=== PATIENT | male | born 1955 | race Caucasian/White ===

== ENCOUNTER 2021-04-20 10:53 | Emergency (ER) | payer OTHER ==
[~2021-04-20] VITALS: Ht 188 cm; Wt 115.0 kg
--- NOTE | 2021-04-20 11:29 | PHYS DOC ---
General Adult HPI: HPI: Patient is a 65-year-old male who presents to the emergency department today for an 18-day history of shortness of breath, nonproductive cough, loss of taste and smell, nausea, vomiting. Patient reports multiple sick exposures. He denies any abdominal pain, weight gain, leg swelling, history of DVT/PE, fever or chest pain. He does not wear oxygen at home. Patient only medical history is anxiety and he takes Lexapro. (DACIA LEAL APRN) Review of Systems: Review of Systems: Constitutional: negative unless reported in HPI Eyes: negative unless reported in HPI HENT: negative unless reported in HPI Respiratory: negative unless reported in HPI Cardiovascular: negative unless reported in HPI GI: negative unless reported in HPI : negative unless reported in HPI Musculoskeletal: negative unless reported in HPI Integument: negative unless reported in HPI Neurologic: negative unless reported in HPI Endocrine: negative unless reported in HPI Lymphatic: negative unless reported in HPI Psychiatric: negative unless reported in HPI (DACIA LEAL APRN) Current Medications: Current Meds: Current Medications Medications (Trade) Dose Ordered Sig/Mike Start Time Stop Time Status Last Admin Dose Admin Aspirin (Aspirin Chewable) 324 mg 1X ONCE 04/20/21 11:30 04/20/21 11:31 UNV Dexamethasone Sodium Phosphate (Decadron) 10 mg 1X ONCE 04/20/21 11:30 04/20/21 11:31 UNV (DACIA LEAL APRN) Physical Exam: PE: Constitutional: Well developed, well nourished, no acute distress, non-toxic appearance. [] HENT: Normocephalic, atraumatic, bilateral external ears normal, oropharynx moist, no oral exudates, nose normal. [] Eyes: PERRL, EOMI, conjunctiva normal, no discharge. [] Neck: Normal range of motion, no stridor Cardiovascular:Heart rate regular rhythm, no murmur [] Lungs & Thorax: coase lower lobes, tachypnea, labored breathing, accessory muscle use, cyanosis to forehead Abdomen: Bowel sounds normal, soft, no tenderness, no masses, no pulsatile masses. [] Skin: Warm, dry, no erythema, no rash. [] Back: Normal rom Extremities: No tenderness, no cyanosis, no clubbing, ROM intact, trace edema noted to ble Neurologic: Alert and oriented X 3, normal motor function, normal sensory function, no focal deficits noted. [] Psychologic: Affect normal, judgement normal, mood normal. [] (DACIA LEAL APRN) Current Patient Data: Labs: Laboratory Tests Test 04/20/21 11:25 04/20/21 11:28 04/20/21 11:40 White Blood Count 22.6 x10^3/uL Red Blood Count 5.06 x10^6/uL Hemoglobin 15.6 g/dL Hematocrit 45.6 % Mean Corpuscular Volume 90 fL Mean Corpuscular Hemoglobin 31 pg Mean Corpuscular Hemoglobin Concent 34 g/dL Red Cell Distribution Width 13.5 % Platelet Count 562 x10^3/uL Neutrophils (%) (Auto) 89 % Lymphocytes (%) (Auto) 4 % Monocytes (%) (Auto) 8 % Eosinophils (%) (Auto) 0 % Basophils (%) (Auto) 0 % Neutrophils # (Auto) 19.9 x10^3uL Lymphocytes # (Auto) 0.8 x10^3/uL Monocytes # (Auto) 1.8 x10^3/uL Eosinophils # (Auto) 0.0 x10^3/uL Basophils # (Auto) 0.0 x10^3/uL Segmented Neutrophils % 83 % Band Neutrophils % 5 % Lymphocytes % 5 % Monocytes % 7 % Platelet Estimate Increased Sodium Level 117 mmol/L Potassium Level 4.5 mmol/L Chloride Level 80 mmol/L Carbon Dioxide Level 25 mmol/L Anion Gap 12 Blood Urea Nitrogen 14 mg/dL Creatinine 1.1 mg/dL Estimated GFR (Cockcroft-Gault) 67.6 BUN/Creatinine Ratio 13 Glucose Level 91 mg/dL Lactic Acid Level 3.5 mmol/L Calcium Level 7.7 mg/dL Total Bilirubin 1.1 mg/dL Aspartate Amino Transf (AST/SGOT) 47 U/L Alanine Aminotransferase (ALT/SGPT) 29 U/L Alkaline Phosphatase 149 U/L Troponin I High Sensitivity 48 ng/L IK-Lxa-R-Type Natriuretic Peptide 717 pg/mL Total Protein 5.7 g/dL Albumin 2.0 g/dL Albumin/Globulin Ratio 0.5 Influenza Type A (Rapid) Negative Influenza Type B (Rapid) Negative SARS-CoV-2 Antigen (Rapid) Negative Bedside Venous pH 7.38 Bedside Venous pCO2 46 mmHg Bedside Venous pO2 21 mmHg Venous Blood HCO3 27 mmol/L POC Venous O2 Saturation (Sulaiman) 33 % Bedside FiO2 100 Current Medications Medications (Trade) Dose Ordered Sig/Mike Route PRN Reason Start Time Stop Time Status Last Admin Dose Admin Aspirin (Aspirin Chewable) 324 mg 1X ONCE PO 04/20/21 11:30 04/20/21 11:42 DC 04/20/21 11:49 Dexamethasone Sodium Phosphate (Decadron) 10 mg 1X ONCE IVP 04/20/21 11:30 04/20/21 11:42 DC 04/20/21 11:50 Iohexol (Omnipaque 350 Mg/ml) 100 ml 1X ONCE IV 04/20/21 11:45 04/20/21 11:46 DC 04/20/21 12:06 (DACIA LEAL APRN) EKG: EKG: EKG performed by ER staff at 1149 shows sinus rhythm. Rate is 88, QTc is 459, n o STEMI read by Dr. Phillips. [] (DACIA LEAL APRN) Radiology/Procedures: Radiology/Procedures: []PROCEDURE: CT ANGIOGRAPHY CHEST CTA CHEST dated 04/20/2021 11:51 AM Indication:Reason: soa, hypoxia / Spl. Instructions: omni 350 100ml, per , do w/o labs / History: Comparison: No comparison is available. Technique: CT images were performed using infusion of 100 mL Omnipaque 350. MIP reconstructions were obtained. One or more of the following individualized dose reduction techniques were utilized for this examination: 1. Automated exposure control 2. Adjustment of the mA and/or kV according to patient size 3. Use of iterative reconstruction technique Findings: There is probably some underlying emphysema and also possibly fibrosis. Ground glass infiltrate is present throughout the left lung without consolidation. There is probably mild air infiltrate on the right. There is some right pleural density that has attenuation of fluid, although appears loculated laterally. Some fluid is also seen inferiorly in the chest on the right. There is a trace of pleural fluid on the left as well. Respiratory motion artifact slightly limits evaluation. The central airways show no obstruction. No enlarged axillary lymph nodes are seen. There are mildly prominent mediastinal and right hilar lymph nodes. These are presumably reactive. Evaluation of the pulmonary arterial tree is slightly limited by the respiratory motion. No abnormal filling defect is identified to the subsegmental branch level. Images through the upper abdomen show no apparent acute abnormality. IMPRESSION: No evidence of pulmonary embolism. Evaluation is slightly limited by respiratory motion. There is probably some underlying lung disease, including possibly both emphysema and some fibrosis. Superimposed on this is extensive ground glass infiltrate on the left and milder right-sided infiltrate. There is also some pleural fluid on the right that is partly loculated. Electronically signed by: David Daniel Jr., MD (04/20/2021 12:25 PM) [facility] DICTATED AND SIGNED BY: DAVID DANIEL Jr, MD DATE: 04/20/211218 CC: MARLEY RHODES MD; DACIA LEAL APRN ~MTH0 0 (DACIA LEAL APRN) Heart Score: C/O Chest Pain: No Risk Factors: Risk Factors: DM, Current or recent (<one month) smoker, HTN, HLP, family history of CAD, obesity. Risk Scores: Score 0 - 3: 2.5% MACE over next 6 weeks - Discharge Home Score 4 - 6: 20.3% MACE over next 6 weeks - Admit for Clinical Observation Score 7 - 10: 72.7% MACE over next 6 weeks - Early Invasive Strategies (DACIA LEAL APRN) Course & Med Decision Making: Course & Med Decision Making Pertinent Labs and Imaging studies reviewed. (See chart for details) Patient presents to the ER for soa, cough, loss of taste/smell, nausea/vomiting that started 18 days ago. Patient was noted to be labored in the emergency department and his O2 saturation upon ER arrival is 61% on room air. Patient was titrated up on 10 L via nonrebreather and his O2 sat following was 93 to 94%. Patient does not wear oxygen at home. He has no medical history other than anxiety. He denies any history of blood clots and denies any leg swelling. Work-up in the ER consisted of blood work, ABG, covid testing/flu testing, urinalysis, EKG. Due to patient's hypoxia and COVID symptoms, CT angio was pe rformed to rule out a pulmonary embolism. Patient was treated with IV steroids. Patient notified nursing staff that he wants to leave AGAINST MEDICAL ADVICE. I went into patient's room and discussed the severity of his symptoms. We discussed the benefits of staying in the emergency department and admission and the risks associated with leaving AGAINST MEDICAL ADVICE including worsening of condition and . Patient is alert and oriented x4 and capable of making his own decisions. Patient states that he cannot stay in this emergency room because he is too claustrophobic. I told patient that if he left AGAINST MEDICAL ADVICE he could . Patient states "no I will not". "I have had this for 18 days already". I told patient that he is requiring oxygen through a nonrebreather and his oxygen saturations when he came to the emergency department were critically low. Patient states "I will just follow-up with my doctor". ER nurse went into patient's room and reiterated the importance of staying in the hospital for IV antibiotics, oxygen therapy. Patient is reporting that he does not want to be in the ER anymore, nursing staff re iterated the risks associated with leaving AGAINST MEDICAL ADVICE including . Patient acknowledges all risks associated with leaving AGAINST MEDICAL ADVICE. AMA papers signed. We contacted patient's significant other and informed her of patient's wishes and she is currently in route to the emergency department. Patient will be sent home with prescriptions for steroid, antibiotics and an albuterol inhaler. Patient was given a dose of Rocephin prior to ER departure. (DACIA LEAL SAS ETL DEVELOPER) Course & Med Decision Making Did not see or evaluate patient. Did not discuss patient with AMBULATORY CARE. Agree with AMBULATORY CARE's work-up and disposition per note. (URSULA PHILLIPS MD) Dragon Disclaimer: Dragon Disclaimer: This electronic medical record was generated, in whole or in part, using a voice recognition dictation system. (DACIA LEAL SAS ETL DEVELOPER) Departure Departure: Impression: Primary Impression: Pneumonia Qualified Codes: J18.9 - Pneumonia, unspecified organism Disposition: LEFT AGAINST MEDICAL ADVICE Condition: CRITICAL Referrals: MARLEY RHODES MD (PCP) Patient Instructions: Pneumonia, Adult Additional Instructions: You were seen in the emergency department today for shortness of breath. I urged you to be admitted to the hospital for oxygen therapy and IV antibiotics, you have critically low sodium and you are experiencing multiple organ failure. You declined hospital admission and chose to leave AGAINST MEDICAL ADVICE. Leaving AGAINST MEDICAL ADVICE can lead to worsening of your condition and . Scripts Dexamethasone (Decadron) 4 Mg Tablet 10 MG PO DAILY for pneumonia for 5 Days, #13 TAB 0 Refills Prov: DACIA LEAL APRN 04/20/21 Amoxicillin/Potassium Clav (AUGMENTIN 875-125 TABLET) 1 Each Tablet 1 TAB PO BID for pneumonia for 5 Days, #10 TAB 0 Refills Prov: DACIA LEAL APRN 04/20/21 Azithromycin (AZITHROMYCIN TABLET) 250 Mg Tablet 1 PKG PO UD for pneumonia for 5 Days, #6 TAB 0 Refills 2 the first day followed by 1 for days 2-5 Prov: DACIA LEAL APRN 04/20/21 Albuterol Sulfate (PROAIR HFA INHALER) 8.5 Gm Hfa.aer.ad 2 PUFF IH PRN Q4-6HRS PRN for wheezing for 21 Days, #1 INHALER 0 Refills as needed for wheezing Prov: DACIA LEAL APRN 04/20/21 DACIA LEAL APRN Apr 20, 2021 11:29 URSULA PHILLIPS MD Apr 20, 2021 15:03
[2021-04-20] MEDS ORDERED: ASPIRIN CHEWABLE 81 MG TABLET. PO ONE (11:30)
[2021-04-20] MEDS ORDERED: DEXAMETHASONE SOD PHOS 10 MG/ML VIAL. IVP ONE (11:30)
[2021-04-20] MEDS ORDERED: IOHEXOL 350 MG/ML 100 ML VIAL. IV ONE (11:45)
[2021-04-20 12:10] LABS: BASO % 0 % (0-3); EOS % 0 % (0-3); HEMATOCRIT 45.6 % (39.0-53.0); HEMOGLOBIN 15.6 g/dL (13.0-17.5); LYMPH # 0.8 x10^3/uL (1.0-4.8); LYMPH % 4 % (24-48); MEAN CORPUSCULAR HEMOGLOBIN 31 pg (25-35); MEAN CORPUSCULAR HGB CONC 34 g/dL (31-37); MEAN CORPUSCULAR VOLUME 90 fL (79-100); MONO # 1.8 x10^3/uL (0.0-1.1); MONO % 8 % (0-9); NEUT # 19.9 x10^3uL (1.8-7.7); NEUT % 89 % (31-73); PLATELET COUNT 562 x10^3/uL (140-400); RED BLOOD COUNT 5.06 x10^6/uL (4.30-5.70); RED CELL DISTRIBUTION WIDTH 13.5 % (11.5-14.5); WHITE BLOOD COUNT 22.6 x10^3/uL (4.0-11.0)
[2021-04-20 12:24] LABS: ALBUMIN/GLOBULIN RATIO 0.5 (1.0-1.7); CALCIUM 7.7 mg/dL (8.5-10.1); CREATININE 1.1 mg/dL (0.7-1.3); GFR 67.6; POTASSIUM 4.5 mmol/L (3.5-5.1); TOTAL BILIRUBIN 1.1 mg/dL (0.2-1.0); TOTAL PROTEIN 5.7 g/dL (6.4-8.2)
--- NOTE | 2021-04-20 12:27 | RAD ---
CTA CHEST dated 04/20/2021 11:51 AM Indication:Reason: soa, hypoxia / Spl. Instructions: omni 350 100ml, per do Alex w/o labs / His tory: Comparison: No comparison is available. Technique: CT images were performed using infusion of 100 mL Omnipaque 350. MIP reconstructions were obtained. One or more of the following individualized dose reduction techniques were utilized for this examinat ion: 1. Automated exposure control 2. Adjustment of the mA and/or kV according to patient size 3. Use of iterative reconstruction technique Findings: There is probably some underlying emphysema and also possibly fibrosis. Ground glass infiltrate is pr esent throughout the left lung without consolidation. There is probably mild air infiltrate on the ri ght. There is some right pleural density that has attenuation of fluid, although appears loculated la terally. Some fluid is also seen inferiorly in the chest on the right. There is a trace of pleural fl uid on the left as well. Respiratory motion artifact slightly limits evaluation. The central airways show no obstruction. No enlarged axillary lymph nodes are seen. There are mildly prominent mediastina l and right hilar lymph nodes. These are presumably reactive. Evaluation of the pulmonary arterial tree is slightly limited by the respiratory motion. No abnormal filling defect is identified to the subsegmental branch level. Images through the upper abdomen show no apparent acute abnormality. IMPRESSION: No evidence of pulmonary embolism. Evaluation is slightly limited by respiratory motion. There is probably some underlying lung disease, including possibly both emphysema and some fibrosis. Superimposed on this is extensive ground glass infiltrate on the left and milder right-sided infiltra te. There is also some pleural fluid on the right that is partly loculated. Electronically signed by: Keenan Daniel Jr., MD (04/20/2021 12:25 PM) [facility]OSPITALOsvaldo
--- NOTE | 2021-04-20 12:28 | EKG ---
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
[2021-04-20 12:30] LABS: INFLUENZA A PATIENT NEGATIVE (NEGATIVE); INFLUENZA B PATIENT NEGATIVE (NEGATIVE)
[2021-04-20 12:39] VITALS: BP 139/70
[2021-04-20 12:46] LABS: % BANDS 5 % (0-9); % LYMPHS 5 % (24-48); % MONOS 7 % (0-10); % SEGS 83 % (35-66); PLT ESTIMATE INCREASED (ADEQUATE)
[2021-04-20] MEDS ORDERED: ALBU2.5V8 IH (12:52)
[2021-04-20] MEDS ORDERED: AMOX1TAB61 PO (12:52)
[2021-04-20] MEDS ORDERED: DEXA4TAB63 PO (12:52)
[2021-04-20] MEDS ORDERED: AZIT250T6 PO (12:52)
[2021-04-20] MEDS ORDERED: cefTRIAXone SODIUM 1 GM VIAL ONE (12:53)
[2021-04-20] MEDS ORDERED: cefTRIAXone IM 1 GM VIAL IM ONE (13:00)
== END 2021-04-20 13:00 | disposition left against medical advice (07) ==
LOC: ER 10:53
DX: U07.1 COVID-19 (principal); J18.9 Pneumonia, unspecified organism
CPT/HCPCS: 36415; 71275; 80053; 82803; 83605; 83880; 84484; 85007; 85025; 87040; 87428; 93005; 96372; 96374; 99285; C9803; J0696; J1100; Q9967; U0003

== ENCOUNTER 2021-04-20 19:02 | Emergency (ER) | payer OTHER ==
[~2021-04-20] VITALS: Ht 188 cm; Wt 115.0 kg
[~2021-04-20 19:02] MED LIST: ALBU2.5V8 IH; AMOX1TAB61 PO; AZIT250T6 PO; DEXA4TAB63 PO
[2021-04-20] MEDS ORDERED: PIPERACILLIN/TAZOBACTAM 4.5 GM in IV NORMAL SALINE 50ML 50 ML IV ONE (19:15)
[2021-04-20] MEDS ORDERED: IV NORMAL SALINE 50ML 50 ML ONE ×3 (19:37→21:46)
[2021-04-20] MEDS ORDERED: PIPERACILLIN/TAZOBACTAM 4.5 GM VIAL IV ONE ×2 (19:37→19:44)
--- NOTE | 2021-04-20 19:47 | PHYS DOC ---
Past History Past Medical History: Pneumonia (DOUGLAS JETT MD) Past Surgical History: No Surgical History (DACIA LEAL APRN) Alcohol Use: Heavy (DACIA LEAL APRN) General Adult EDM: Chief Complaint: SHORTNESS OF BREATH HPI: HPI: Patient is a 65-year-old male who presents to the emergency department for shortness of breath. I saw this patient earlier this afternoon for complaints of shortness of breath, nonproductive cough, loss of taste and smell with nausea and vomiting. At that time patient was placed on a nonrebreather due to hypoxia. He had bilateral infiltrates with hyponatremia, lactic acidosis, new CHF with an elevated BNP and leukocytosis indicating sepsis. Patient chose to sign out AGAINST MEDICAL ADVICE at that time. Patient returns to the emergency department today for exacerbation of his symptoms. Patient denies any current chest pain. On room air patient is 61%. Patient is placed on a nonrebreather and is 92 to 93%. (DACIA LEAL APRN) Review of Systems: Review of Systems: Constitutional: negative unless reported in HPI Eyes: negative unless reported in HPI HENT: negative unless reported in HPI Respiratory: negative unless reported in HPI Cardiovascular: negative unless reported in HPI GI: negative unless reported in HPI : negative unless reported in HPI Musculoskeletal: negative unless reported in HPI Integument: negative unless reported in HPI Neurologic: negative unless reported in HPI Endocrine: negative unless reported in HPI Lymphatic: negative unless reported in HPI Psychiatric: negative unless reported in HPI (DACIA LEAL APRN) Current Medications: Current Meds: Current Medications Medications (Trade) Dose Ordered Sig/Mike Start Time Stop Time Status Last Admin Dose Admin Piperacillin Sod/ Tazobactam Sod 4.5 gm/Sodium Chloride 50 ml @ 100 mls/hr 1X ONCE 04/20/21 19:15 04/20/21 19:44 (DACIA LEAL APRN) Allergies: Allergies: Allergies Coded Allergies Type Severity Reaction Last Updated Verified No Known Drug Allergies 04/20/21 No (DACIA LEAL APRN) Physical Exam: PE: Constitutional: Well developed, well nourished, no acute distress, non-toxic appearance. [] HENT: Normocephalic, atraumatic, cyanosis to the face noted, bilateral external ears normal, oropharynx moist, no oral exudates, nose normal. [] Eyes: PERRL, EOMI, conjunctiva normal, no discharge. [] Neck: Normal range of motion, no tenderness, supple, no stridor. [] Cardiovascular:Heart rate regular rhythm, no murmur [] Lungs & Thorax: Coarse lower lobes, tachypnea, labored, accessory muscle use Abdomen: Bowel sounds normal, soft, no tenderness, obese, no masses, no pulsatile masses. [] Skin: Warm, dry, no erythema, no rash. [] Back: Normal range of motion Extremities: No tenderness, no cyanosis, no clubbing, ROM intact, trace edema to bilateral lower extremities Neurologic: Alert and oriented X 3, normal motor function, normal sensory function, no focal deficits noted. [] Psychologic: Affect normal, judgement normal, mood normal. [] (DACIA LEAL APRN) Current Patient Data: Labs: Current Medications Medications (Trade) Dose Ordered Sig/Mike Route PRN Reason Start Time Stop Time Status Last Admin Dose Admin Piperacillin Sod/ Tazobactam Sod 4.5 gm/Sodium Chloride 50 ml @ 100 mls/hr 1X ONCE IV 04/20/21 19:15 04/20/21 19:44 (DACIA LEAL APRN) EKG: EKG: EKG performed by ER staff at 1941 shows sinus rhythm with a rate of 80, QTc of 447, no STEMI read by Dr. Jett [] (DACIA LEAL APRN) EKG: My interpretation EKG shows a sinus rhythm at 77 bpm. No acute morphology. Time of EKG is 0011 minutes (DOUGLAS JETT MD) Radiology/Procedures: Radiology/Procedures: [] (DACIA LEAL APRN) Heart Score: C/O Chest Pain: No Risk Factors: Risk Factors: DM, Current or recent (<one month) smoker, HTN, HLP, family history of CAD, obesity. Risk Scores: Score 0 - 3: 2.5% MACE over next 6 weeks - Discharge Home Score 4 - 6: 20.3% MACE over next 6 weeks - Admit for Clinical Observation Score 7 - 10: 72.7% MACE over next 6 weeks - Early Invasive Strategies (DACIA LEAL APRN) Course & Med Decision Making: Course & Med Decision Making Pertinent Labs and Imaging studies reviewed. (See chart for details) [] Patient presents to the emergency department for shortness of breath. ECG reveals lab values from visit earlier this afternoon. Patient signed out AGAINST MEDICAL ADVICE. Patient was noted to have pneumonia and was septic with new CHF with a BNP of 717. Repeat lactic acid, ABG and EKG performed. Patient will be treated with IV antibiotics. Patient will require hospital admission but is unable to be admitted at this facility. The unit coordinator has contacted many hospital's outside of the [facility] to attempt to transfer the patient and none have any beds available. I discussed patient's case with Dr. Colon who agreed to admit the patient at [facility] when a bed does become available. Patient continues to be on a nonrebreather and is currently O2 sat of 94 to 95%. Patient will remain held in the emergency department under Dr. Schumacher's admission until there is a bed available for him at [facility]. Per Dr. Colon, patient was treated with IV fluids, steroids, Lovenox, Zithromax and Rocephin. He advised to discontinue Lexapro as that can cause hyponatremia. Repeat CBC, CMP as well as TSH and cortisol ordered. Bridge orders placed at this time 2019. Case discussed with supervisin g physician. (DACIA LEAL APRN) Course & Med Decision Making See Lynette notes prior shift change. Pt. case discused with Endy- Admit to his service at [facility] if bed becomes available. If off Bipap admit here to Dr. Rhodes service. - Message left with Dr. Rhodes. Impression: 1. Respiratory Failure -hypoxia 2. Atypical Pneumonia 3. Leukocytosis 19.1 4. Critical Hyponatremia 5. Malnutrition Alb. 1.9 6. Elevated Trop. 49 7. COVID PCR still pending 2336 8. No Covid or Flu vaccination 9. Earlier AMA visit Pt. finally agrees to try Bipap. 2337 Hrs. Bipap 14/6 with rate 18, Tidal vol;> 600, Oxy. 55%= Sats.now 98% Tolerating Bipap well. Critical Care 45 minutes. Management of bipap and labs. Endorsed to Dr. Palma at shift change. (DOUGLAS JETT MD) Course & Med Decision Making I assumed care of patient after comprehensive signout from outgoing physician Patient pending hospital transfer. I reviewed entirety of ER work-up and repeated aspects of history and physical exam Unsure what patient's baseline is, he appears delirious. Unsure if this is due to hyponatremia, history of alcohol dependence with last use being 18 days prior, or infectious process from pulmonary source Patient had multiple episodes of desaturations that were witnessed in ER setting due to his inability to keep BiPAP mask on Decision was made to intubate patient due to ongoing noncompliance/delirious state and issues with oxygenating and ventilating patient. He was intubated successfully on second attempt, was a difficult intubation due to body habitus and significant oropharyngeal secretions At this time in care, patient's girlfriend notified. He is still pending hospital transfer for admission (ROHINI PALMA DO) Dragon Disclaimer: Dragon Disclaimer: This electronic medical record was generated, in whole or in part, using a voice recognition dictation system. (DACIA LEAL HOME SCHOOL TEACHER) Intubation Intubation : Intubation Method: orotracheal Tube Size (cm): 7.5 Breath Sounds after Intubation: equal Intubation Complications: O2 saturation decreased Post Intubation Xray: Yes Progress The patient required endotracheal intubation due to failure to oxygenate and ventilate Consent was implied due to Medical Center and patient not having any capacity wi th no apparent next of kin available for contact The patient was given 240 ketamine and 140 rocuronium Once patient was adequately sedated and paralyzed, a glidoscope 3.0 blade was used to directly visualize the cords Using this direct visualization, a 7.5 endotracheal tube was then passed easily through the cords on second attempt. First attempt was blocked by significant oropharyngeal secretions requiring significant suction and removal of blade with reapplication of BVM and OPA The tube was inserted at 22 centimeters at the lip There is excellent color change on end-tidal CO2 monitor. Patient was easily and adequately ventilated. There was excellent breath sounds bilaterally with no breath sounds heard over the epigastrium. The tube was secured in standard fashion. Patient had desaturation during intubation procedure due to significant oropharyngeal secretions requiring extensive suction to clear her airway for visualization of vocal cords Post intubation chest x-ray demonstrates excellent endotracheal tube placement (ROHINI PALMA DO) Departure Departure: Impression: Primary Impression: Pneumonia Qualified Codes: J18.9 - Pneumonia, unspecified organism Additional Impressions: Hypoxia Hyponatremia Person under investigation for COVID-19 Sepsis Qualified Codes: A41.9 - Sepsis, unspecified organism; R65.20 - Severe sepsis without septic shock; J96.01 - Acute respiratory failure with hypoxia Disposition: 09 ADMITTED INPATIENT Admitting Physician: Ruth Schumacher (DACIA LEAL APRN) Condition: STABLE Referrals: MARLEY RHODES MD (PCP) Attending Signature Attending Signature I have participated in the care of this patient and I have reviewed and agree with all pertinent clinical information above including history, exam, and recommendations. (DOUGLAS JETT MD) Attending Signature Attending Signature I have participated in the care of this patient and I have reviewed and agree with all pertinent clinical information above including history, exam, and recommendations. (DOUGLAS JETT MD) DACIA LEAL APRN Apr 20, 2021 19:47 DOUGLAS JETT MD Apr 20, 2021 23:29 ROHINI PALMA DO Apr 21, 2021 06:12
[2021-04-20] MEDS ORDERED: AZITHROMYCIN 500 MG in IV NORMAL SALINE 250ML 250 ML IV ONE (20:00)
[2021-04-20] MEDS ORDERED: DEXAMETHASONE SOD PHOS 10 MG/ML VIAL. IVP ONE (20:00)
--- NOTE | 2021-04-20 20:17 | EKG ---
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
[2021-04-20 20:20] LABS: BGAS PH 7.45 (7.35-7.46)
[2021-04-20 20:52] LABS: ALBUMIN 1.9 g/dL (3.4-5.0); ALBUMIN/GLOBULIN RATIO 0.4 (1.0-1.7); CALCIUM 8.1 mg/dL (8.5-10.1); GFR 75.5; POTASSIUM 4.3 mmol/L (3.5-5.1); TOTAL BILIRUBIN 0.8 mg/dL (0.2-1.0); TOTAL PROTEIN 6.6 g/dL (6.4-8.2)
[2021-04-20] MEDS ORDERED: ENOXAPARIN ** NOTE DOSE ** SYRINGE SQ ONE (21:00)
[2021-04-20] MEDS ORDERED: IV NORMAL SALINE 250ML 250 ML ONE (21:46)
[2021-04-20] MEDS ORDERED: AZITHROMYCIN 500 MG VIAL. IV ONE (21:46)
[2021-04-20] MEDS ORDERED: cefTRIAXone SODIUM 1 GM VIAL ONE (21:47)
[2021-04-20] MEDS: IV NORMAL SALINE 1,000ML 1,000 ML IV SCH (22:02)
[2021-04-20 22:12] LABS: BASO % 0 % (0-3); EOS % 0 % (0-3); HEMATOCRIT 46.4 % (39.0-53.0); HEMOGLOBIN 15.9 g/dL (13.0-17.5); LYMPH # 0.4 x10^3/uL (1.0-4.8); LYMPH % 2 % (24-48); MEAN CORPUSCULAR HEMOGLOBIN 31 pg (25-35); MEAN CORPUSCULAR HGB CONC 34 g/dL (31-37); MEAN CORPUSCULAR VOLUME 90 fL (79-100); MONO # 0.7 x10^3/uL (0.0-1.1); MONO % 3 % (0-9); NEUT % 94 % (31-73); PLATELET COUNT 491 x10^3/uL (140-400); RED BLOOD COUNT 5.16 x10^6/uL (4.30-5.70); RED CELL DISTRIBUTION WIDTH 13.5 % (11.5-14.5); WHITE BLOOD COUNT 19.1 x10^3/uL (4.0-11.0)
--- NOTE | 2021-04-21 00:30 | EKG ---
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
--- NOTE | 2021-04-21 07:57 | RAD ---
Study: XR CHEST 1V Indication: Shortness of breath. Comparison: Recent CT chest. Findings: Extensive airspace opacities on both the right and left persist. Background interstitial prominence, peribronchial cuffing and reticulonodular densities. There is again a loculated pleural effusion on t he right. No pneumothorax. 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 Impression: Persistence of extensive airspace opacities throughout both lungs as well as a small volume loculated pleural effusion on the right. Electronically signed by: BRADLEY WERNER MD (04/21/2021 7:54 AM) [facility]
[2021-04-21 08:04] LABS: BASO % 0 % (0-3); EOS % 0 % (0-3); HEMATOCRIT 44.8 % (39.0-53.0); HEMOGLOBIN 15.2 g/dL (13.0-17.5); LYMPH # 0.4 x10^3/uL (1.0-4.8); LYMPH % 2 % (24-48); MEAN CORPUSCULAR HEMOGLOBIN 31 pg (25-35); MEAN CORPUSCULAR HGB CONC 34 g/dL (31-37); MEAN CORPUSCULAR VOLUME 90 fL (79-100); MONO % 6 % (0-9); NEUT # 16.9 x10^3uL (1.8-7.7); NEUT % 92 % (31-73); PLATELET COUNT 512 x10^3/uL (140-400); RED BLOOD COUNT 4.99 x10^6/uL (4.30-5.70); RED CELL DISTRIBUTION WIDTH 13.7 % (11.5-14.5); WHITE BLOOD COUNT 18.4 x10^3/uL (4.0-11.0)
[2021-04-21 08:11] LABS: ALBUMIN/GLOBULIN RATIO 0.5 (1.0-1.7); CALCIUM 7.8 mg/dL (8.5-10.1); GFR 75.5; POTASSIUM 4.8 mmol/L (3.5-5.1); TOTAL BILIRUBIN 0.8 mg/dL (0.2-1.0); TOTAL PROTEIN 5.8 g/dL (6.4-8.2)
[2021-04-21] MEDS ORDERED: DEXMEDETOMIDINE 400 MCG in IV NORMAL SALINE 100ML 96 ML IV PRN (08:15)
[2021-04-21] MEDS ORDERED: IV NORMAL SALINE 500ML 500 ML IV PRN (08:15)
[2021-04-21] MEDS ORDERED: ATROPINE 0.5 MG/5 ML DISP.SYRIN. IV PRN (08:15)
[2021-04-21] MEDS: IV NORMAL SALINE 1,000ML 1,000 ML IV SCH (08:31)
[2021-04-21] MEDS ORDERED: MIDAZOLAM HCL PF 5 MG/5 ML VIAL. ONE (09:29)
[2021-04-21] MEDS ORDERED: KETAMINE HCL 500 MG/10 ML VIAL. ONE (09:29)
[2021-04-21] MEDS ORDERED: ROCURONIUM 50 MG/5 ML VIAL. ONE (09:30)
--- NOTE | 2021-04-21 10:36 | RAD ---
XR CHEST 1V History: Intubation. Comparison: 04/21/2021 Technique: Portable AP chest radiograph. FINDINGS/ IMPRESSION: Tubes and lines: 6.5 cm above the brittany. Gastric tube courses below the left diaphragm in the expect ed region of the stomach. Lungs and pleura: No pneumothorax. Small right pleural effusion. Moderate bilateral airspace opacitie s. Cardiac silhouette and pulmonary vasculature: Unremarkable. Osseous structures and other: No acute findings. Electronically signed by: Arturo Solano MD (04/21/2021 10:33 AM) [id number]
[2021-04-21] MEDS ORDERED: ROCURONIUM 50 MG/5 ML VIAL. IV ONE (11:00)
[2021-04-21] MEDS ORDERED: PROPOFOL 100 ML IV ONE ×2 (11:14→18:50)
[2021-04-21 11:25] LABS: BGAS PH 7.29 (7.35-7.46)
[2021-04-21] MEDS: PROPOFOL 100 ML IV PRN ×2 (11:30→18:55)
[2021-04-21] MEDS: MIDAZOLAM HCL PF 5 MG/5 ML VIAL. IV PRN ×2 (12:33→17:43)
[2021-04-21] MEDS ORDERED: ENOXAPARIN 40 MG/0.4 ML SYRINGE. SQ SCH (13:45)
[2021-04-21] MEDS ORDERED: VECURONIUM IV PRN ×2 (15:15→15:30)
[2021-04-21] MEDS ORDERED: NORMAL SALINE IV PRN ×2 (15:15→15:30)
[2021-04-21 15:20] LABS: CALCIUM 7.2 mg/dL (8.5-10.1); CREATININE 0.8 mg/dL (0.7-1.3); GFR 97.6; POTASSIUM 5.2 mmol/L (3.5-5.1)
[2021-04-21] MEDS ORDERED: 1/2 NORMAL SALINE IV ONE (15:30)
[2021-04-21] MEDS ORDERED: CALCIUM GLUCONATE IV ONE (15:30)
[2021-04-21] MEDS ORDERED: PANTOPRAZOLE IV 40 MG VIAL. ONE (15:32)
[2021-04-21] MEDS: DEXAMETHASONE SOD PHOS 4 MG/ML VIAL. IVP SCH (15:43)
[2021-04-21] MEDS ORDERED: ALBUTEROL SULFATE 8GM INHALER. INH ONE ×2 (23:45)
--- NOTE | 2021-04-22 00:15 | RAD ---
EXAMINATION: Chest radiograph. VIEWS: Single AP view of the chest COMPARISON: Earlier same day INDICATION:65 years, Male, decreasing sat, Covid. FINDINGS: The endotracheal tube terminates 6.1 CMS above the brittany. Gastric tube courses below the level of th e diaphragm and outside the field of view. Stable cardiac silhouette. Slightly decreased moderate marilin ateral airspace opacities. Small right pleural effusion no pneumothorax. No acute osseous process. IMPRESSION: 1. Endotracheal tube in stable position. 2. Slightly decreased moderate bilateral airspace opacities. 3. Similar small right pleural effusion. Electronically signed by: Tomás Cuadra DO (04/22/2021 12:02 AM) [facility]
[2021-04-22] MEDS ORDERED: IPRATRPIUM/ALBUTEROL 0.5/2.5MG 3 ML NEBU. ONE (00:17)
[2021-04-22 01:04] LABS: BGAS PH 7.21 (7.35-7.46)
[2021-04-22] MEDS ORDERED: VECURONIUM 10 MG VIAL. IV ONE ×2 (01:21→01:25)
[2021-04-22] MEDS ORDERED: IV NORMAL SALINE 50ML 0 ML ONE (01:30)
[2021-04-22] MEDS ORDERED: SODIUM BICARB ADULT 8.4% 50 MEQ/50 ML DISP.SYRIN. IV ONE (02:00)
[2021-04-22 02:18] LABS: BASO % 0 % (0-3); EOS % 0 % (0-3); HEMATOCRIT 43.9 % (39.0-53.0); HEMOGLOBIN 14.8 g/dL (13.0-17.5); LYMPH # 0.9 x10^3/uL (1.0-4.8); LYMPH % 4 % (24-48); MEAN CORPUSCULAR HEMOGLOBIN 31 pg (25-35); MEAN CORPUSCULAR HGB CONC 34 g/dL (31-37); MEAN CORPUSCULAR VOLUME 91 fL (79-100); MONO # 1.1 x10^3/uL (0.0-1.1); MONO % 5 % (0-9); NEUT # 18.9 x10^3uL (1.8-7.7); NEUT % 91 % (31-73); PLATELET COUNT 531 x10^3/uL (140-400); RED BLOOD COUNT 4.83 x10^6/uL (4.30-5.70); RED CELL DISTRIBUTION WIDTH 13.7 % (11.5-14.5); WHITE BLOOD COUNT 20.9 x10^3/uL (4.0-11.0)
[2021-04-22 02:44] LABS: ALBUMIN 1.9 g/dL (3.4-5.0); ALBUMIN/GLOBULIN RATIO 0.4 (1.0-1.7); CALCIUM 8.2 mg/dL (8.5-10.1); CREATININE 0.9 mg/dL (0.7-1.3); GFR 85.2; POTASSIUM 4.6 mmol/L (3.5-5.1); TOTAL BILIRUBIN 0.7 mg/dL (0.2-1.0); TOTAL PROTEIN 6.6 g/dL (6.4-8.2)
[2021-04-22] MEDS ORDERED: MIDAZOLAM HCL 50 MG in IV NORMAL SALINE 50ML 50 ML IV ONE (03:00)
[2021-04-22] MEDS ORDERED: MIDAZOLAM HCL PF 5 MG/5 ML VIAL. IV PRN (03:00)
[2021-04-22] MEDS ORDERED: NORMAL SALINE IV ONE (03:30)
[2021-04-22] MEDS ORDERED: VECURONIUM IV ONE (03:30)
[2021-04-22 04:43] LABS: BGAS PH 7.43 (7.35-7.46)
[2021-04-22] MEDS ORDERED: IV NORMAL SALINE 50ML 50 ML ONE ×2 (05:24→07:15)
[2021-04-22] MEDS ORDERED: MIDAZOLAM 50mg/50ml NS KIT 50 ML IV ONE (05:35)
[2021-04-22] MEDS ORDERED: MIDAZOLAM HCL PF 5 MG/5 ML VIAL. IV ONE (06:00)
[2021-04-22] MEDS: DEXAMETHASONE SOD PHOS 4 MG/ML VIAL. IVP SCH (06:02)
[2021-04-22] MEDS ORDERED: AZITHROMYCIN 250 MG in IV NORMAL SALINE 250ML 250 ML IV SCH (07:00)
[2021-04-22] MEDS ORDERED: IV NORMAL SALINE 250ML 250 ML ONE (07:16)
[2021-04-22] MEDS ORDERED: AZITHROMYCIN 500 MG VIAL. IV ONE (07:16)
[2021-04-22] MEDS ORDERED: cefTRIAXone SODIUM 1 GM VIAL ONE (07:16)
[2021-04-22] MEDS ORDERED: PANTOPRAZOLE IV 40 MG VIAL. IVP SCH (07:30)
[2021-04-22] MEDS ORDERED: KETAMINE HCL 500 MG/10 ML VIAL. ONE (08:03)
--- NOTE | 2021-04-22 08:54 | RAD ---
XR CHEST 1V History: Reason: s/p right IJ / Spl. Instructions: / History: Comparison: April 21, 2021 Findings: Interval placement right IJ central line with tip projecting over the mid SVC. Stable endotracheal tu be and enteric tube. Diffuse pulmonary opacities, unchanged. Small right pleural effusion, unchanged. Unchanged heart size. No pneumothorax. Impression: 1. Interval placement right IJ central line. No pneumothorax. 2. Unchanged diffuse pulmonary opacities. Electronically signed by: Andre Myrick DO (04/22/2021 8:51 AM) [id number]
[2021-04-22] MEDS: IV NORMAL SALINE 1,000ML 1,000 ML IV SCH (08:58)
[2021-04-22] MEDS ORDERED: KETAMINE HCL 500 MG/10 ML VIAL. IV ONE (09:00)
[2021-04-22 09:30] VITALS: BP 101/68
== END 2021-04-22 10:19 | disposition admitted as inpatient to this hospital (09) ==
LOC: ER 19:02 → ER HOLD 19:58 → UNDOADMIN 19:58
DX: A41.9 Sepsis, unspecified organism (principal); R65.20 Severe sepsis without septic shock; J96.01 Acute respiratory failure with hypoxia; J18.9 Pneumonia, unspecified organism; E87.1 Hypo-osmolality and hyponatremia; D72.829 Elevated white blood cell count, unspecified; E46 Unspecified protein-calorie malnutrition; R77.8 Other specified abnormalities of plasma proteins; Z68.32 Body mass index [BMI] 32.0-32.9, adult
CPT/HCPCS: 31500; 36415; 36556; 36600; 51702; 71045; 80048; 80053; 82533; 82803; 83605; 83880; 84443; 84484; 85025; 93005; 94660; 96365; 96366; 96367; 96368; 96372; 96375; 99291; 99292; C9113; J0456; J0461; J0610; J0696; J1100; J1650; J2060; J2250; J2543; J2704; J3010; J3490; J7030; J7050; 94002; 94003